=== PATIENT | female | born 1940 | race Hispanic/Latino ===

== ENCOUNTER → 2018-09-16 | Outpatient (CLI) | payer MEDICARE ==
[~2018-09-16] MED LIST: CHOL100040 PO; LEVO500T2 PO
== END | disposition home or self-care (01) ==
LOC: RAH 13:18
PROVIDERS: ATTEND Urology
DX: N13.30 Unspecified hydronephrosis (principal)
CPT/HCPCS: 76770

== ENCOUNTER 2019-02-26 16:15 | Inpatient (IN) | payer MEDICARE ==
[~2019-02-26] VITALS: Ht 172.7 cm; Wt 80.0 kg
[~2019-02-26 16:15] MED LIST changes: -APIX5TAB PO
[2019-02-26 17:27] LABS: BASOPHILS % (AUTO) 1.6 % (0.0-5.0); EOSINOPHILS % (AUTO) 1.2 % (0.0-8.0); HEMATOCRIT 42.6 % (36-48); LYMPHOCYTES % (AUTO) 29.9 % (21.0-51.0); MEAN CORPUSCULAR HEMOGLOBIN 31.1 pg (27.0-33.0); MEAN CORPUSCULAR VOLUME 91.5 fL (79-99); MONOCYTES % (AUTO) 4.8 % (3.0-13.0); NEUTROPHILS % (AUTO) 62.5 % (40.0-77.0); NUCLEATED RED BLOOD CELLS 0.1 % (0.0-0.19); PLATELET COUNT (AUTO) 178 K/uL (130-400); RED BLOOD CELL COUNT(AUTO) 4.66 MIL/uL (4.00-5.50); RED CELL DISTRIBUTION WIDTH 13.4 % (11.0-15.5); WHITE BLOOD COUNT (AUTO) 6.3 K/uL (4.8-10.8)
[2019-02-26 17:29] LABS: CREATININE 0.7 mg/dL (0.5-1.5); POTASSIUM 3.8 mmol/L (3.5-5.1)
[2019-02-26 17:34] LABS: INR 0.95 (0.85-1.15); PARTIAL THROMBOPLASTIN TIME 22.4 SEC (26.3-35.5)
[2019-02-26] MEDS ORDERED: ENOXAPARIN SODIUM 100 MG/1 ML SQ ONE (17:38)
[2019-02-26 17:57] LABS: APPEARANCE,URINE Clear (CLEAR); BILIRUBIN,URINE Negative (NEGATIVE); COLOR,URINE Yellow (YELLOW); GLUCOSE, URINE (UA) Negative (NEGATIVE); KETONES,URINE Negative (NEGATIVE); LEUKOCYTE ESTERASE ,URINE Moderate (NEGATIVE); NITRATE,URINE Negative (NEGATIVE); OCCULT BLOOD,URINE Negative (NEGATIVE); PH,URINE 7.5 (5.0-8.0); PROTEIN,URINE Negative (NEGATIVE); UROBILINOGEN,URINE 0.2 mg/dL (0.2-1.0)
[2019-02-26 18:13] LABS: BACTERIA,URINE Few /HPF (None Seen); RBC,URINE 0-1 /HPF (0-1)
[2019-02-26 18:14] LABS: SQUAMOUS EPITHELIAL CELL,UR Few /HPF (0-2)
[2019-02-26] MEDS ORDERED: LABETALOL 20 MG/4 ML DISP.SYRIN IV ONE (19:40)
[2019-02-26] MEDS ORDERED: ACETAMINOPHEN 325 MG TAB PO PRN (20:00)
[2019-02-26] MEDS ORDERED: ONDANSETRON HCL 4 MG/2 ML VIAL IV PRN (20:00)
[2019-02-26 20:50] VITALS: BP 184/80
[2019-02-26] MEDS ORDERED: CEFTRIAXONE SODIUM 1 GM IVP SCH (21:30)
[2019-02-26] MEDS: FAMOTIDINE 20MG TAB 20 MG TAB PO SCH (21:42)
[2019-02-26] MEDS: HYDRALAZINE HCL 20 MG/ML VIAL IV PRN (21:42)
[2019-02-26] MEDS: ACETAMINOPHEN 325 MG TAB PO PRN (22:19)
[2019-02-26 23:38] VITALS: BP 165/77
[2019-02-27] MEDS: ACETAMINOPHEN 325 MG TAB PO PRN ×4 (03:24→22:53)
[2019-02-27 04:00] VITALS: BP_SYST 149; BP_SYST 153; BP_DIAS 79; BP_DIAS 89
[2019-02-27 04:50] LABS: BASOPHILS % (AUTO) 0.8 % (0.0-5.0); HEMATOCRIT 39.6 % (36-48); LYMPHOCYTES % (AUTO) 29.8 % (21.0-51.0); MEAN CORPUSCULAR HEMOGLOBIN 31.8 pg (27.0-33.0); MEAN CORPUSCULAR HGB CONC 34.5 g/dL (32.0-36.0); MONOCYTES % (AUTO) 8.5 % (3.0-13.0); NEUTROPHILS % (AUTO) 59.9 % (40.0-77.0); PLATELET COUNT (AUTO) 157 K/uL (130-400); RED BLOOD CELL COUNT(AUTO) 4.31 MIL/uL (4.00-5.50); RED CELL DISTRIBUTION WIDTH 13.1 % (11.0-15.5)
[2019-02-27 05:17] LABS: ALBUMIN 3.3 g/dL (3.5-5.0); BILIRUBIN,TOTAL 0.4 mg/dL (0.2-1.0); CREATININE 0.6 mg/dL (0.5-1.5); POTASSIUM 3.5 mmol/L (3.5-5.1); TOTAL PROTEIN, SERUM 6.6 g/dL (6.0-8.3)
[2019-02-27 08:00] VITALS: BP 158/73
--- NOTE | 2019-02-27 08:00 | NUR ---
DENIES PAIN TO LT LOWER EXTREMITY. NO SWELLING OR REDNESS NOTED AT THIS TIME, STATES IT JUST FEELS HEAVY. HAS BEEN INST. ON BEDREST STATUS.
[2019-02-27] MEDS: FAMOTIDINE 20MG TAB 20 MG TAB PO SCH ×2 (08:53→21:42)
[2019-02-27] MEDS: ENOXAPARIN SODIUM 80 MG/0.8 ML SQ SCH ×2 (08:54→21:42)
--- NOTE | 2019-02-27 09:10 | NUR ---
C/O OF MILD MENA. REQUESTED TYLENOL.
[2019-02-27 11:53] VITALS: BP 157/70
[2019-02-27] MEDS ORDERED: IOHEXOL 350 MG/ML 100ML INFUS..BTL IV ONE (11:59)
--- NOTE | 2019-02-27 12:27 | NUR ---
DCP CM met with pt discussed dc plans. Pt is independent prior to admission, lives at home with spouse. Denies any equipments/services. Pt feels safe to go back home, spouse and daughter able to assist with transportation and needs as necessary. DC plan to home once stable. CM to cont to follow up. Addendum: 02/27/19 at 1228 by SURESH JULIAN LVN CM Amended: Links added.
[2019-02-27] MEDS: LEVOFLOXACIN 500 MG/D5W 100 ML 100 ML IV SCH (13:44)
--- NOTE | 2019-02-27 15:35 | NUR ---
RD NOTIFICATION Pt admitted for Left Lower Extremity DVT. Pt with Heart Healthy Diet in place. Upon visit, Pt reports desire for salads and additional fruit. RD to update food preferences to encourage increased nutritional intake. Pt with no other nutrition concerns. Pt LBM 02/25/19. Pt monitored labs: BUN 19, ALT 11, Alb 3.3. RD to continue to monitor. Please notify RD as additional nutrition concerns arise. Thank you. Addendum: 02/27/19 at [address] RD Amended: Links added.
[2019-02-27 17:30] VITALS: BP 160/78
--- NOTE | 2019-02-27 18:04 | NUR ---
URINE SPECIMEN COLLECTED AND SENT TO LAB FOR CULTURE.
[2019-02-27 19:05] VITALS: BP 143/66
[2019-02-27 19:15] VITALS: BP 143/66
[2019-02-28] VITALS (7 sets, daily range): BP systolic 122–163; BP diastolic 53–88
[2019-02-28] MEDS: HYDRALAZINE HCL 20 MG/ML VIAL IV PRN ×2 (04:38→23:38)
[2019-02-28 05:03] LABS: BASOPHILS % (AUTO) 0.8 % (0.0-5.0); EOSINOPHILS % (AUTO) 1.3 % (0.0-8.0); HEMATOCRIT 40.3 % (36-48); LYMPHOCYTES % (AUTO) 36.5 % (21.0-51.0); MEAN CORPUSCULAR HEMOGLOBIN 31.4 pg (27.0-33.0); MEAN CORPUSCULAR HGB CONC 34.3 g/dL (32.0-36.0); MEAN CORPUSCULAR VOLUME 91.4 fL (79-99); MONOCYTES % (AUTO) 8.8 % (3.0-13.0); NEUTROPHILS % (AUTO) 52.6 % (40.0-77.0); PLATELET COUNT (AUTO) 174 K/uL (130-400); RED BLOOD CELL COUNT(AUTO) 4.41 MIL/uL (4.00-5.50); RED CELL DISTRIBUTION WIDTH 13.8 % (11.0-15.5); WHITE BLOOD COUNT (AUTO) 5.4 K/uL (4.8-10.8)
[2019-02-28 05:09] LABS: CREATININE 0.8 mg/dL (0.5-1.5); POTASSIUM 3.3 mmol/L (3.5-5.1)
[2019-02-28] MEDS ORDERED: LIDOCAINE HCL-MPF 1% 2ML VIAL IV PRN (05:45)
[2019-02-28] MEDS ORDERED: POTASSIUM CHLORIDE 10% ELIXIR 20 MEQ/15 ML UDCUP PO PRN (05:45)
[2019-02-28] MEDS ORDERED: POTASSIUM CHLORIDE 20MEQ/100ML 100 ML IV PRN (05:45)
[2019-02-28] MEDS: POTASSIUM CHLORIDE 20 MEQ ERTAB PO PRN ×3 (06:01→12:24)
[2019-02-28] MEDS: Cholecalciferol (Vitamin D3) (Vitamin D3) 1,000 UNIT PO SCH (09:00)
[2019-02-28] MEDS: APIXABAN 5 MG TABLET PO SCH ×2 (10:26→19:20)
[2019-02-28] MEDS: FAMOTIDINE 20MG TAB 20 MG TAB PO SCH ×2 (10:26→19:20)
[2019-02-28] MEDS: LEVOFLOXACIN 500 MG/D5W 100 ML 100 ML IV SCH (12:24)
[2019-03-01] VITALS (8 sets, daily range): BP systolic 120–186; BP diastolic 61–102
[2019-03-01 08:44] LABS: BASOPHILS % (AUTO) 0.6 % (0.0-5.0); EOSINOPHILS % (AUTO) 0.3 % (0.0-8.0); HEMATOCRIT 43.6 % (36-48); LYMPHOCYTES % (AUTO) 24.8 % (21.0-51.0); MEAN CORPUSCULAR HEMOGLOBIN 31.6 pg (27.0-33.0); MEAN CORPUSCULAR VOLUME 92.9 fL (79-99); MONOCYTES % (AUTO) 7.6 % (3.0-13.0); NEUTROPHILS % (AUTO) 66.7 % (40.0-77.0); NUCLEATED RED BLOOD CELLS 0.1 % (0.0-0.19); PLATELET COUNT (AUTO) 196 K/uL (130-400); RED BLOOD CELL COUNT(AUTO) 4.69 MIL/uL (4.00-5.50); RED CELL DISTRIBUTION WIDTH 13.9 % (11.0-15.5); WHITE BLOOD COUNT (AUTO) 7.9 K/uL (4.8-10.8)
[2019-03-01] MEDS: Cholecalciferol (Vitamin D3) (Vitamin D3) 1,000 UNIT PO SCH (09:00)
[2019-03-01 09:30] LABS: CREATININE 0.7 mg/dL (0.5-1.5)
[2019-03-01] MEDS: FAMOTIDINE 20MG TAB 20 MG TAB PO SCH ×2 (10:22→20:36)
[2019-03-01] MEDS: APIXABAN 5 MG TABLET PO SCH ×2 (10:22→20:37)
[2019-03-01 11:22] LABS: POTASSIUM 4.4 mmol/L (3.5-5.1)
[2019-03-01] MEDS: LEVOFLOXACIN 500 MG/D5W 100 ML 100 ML IV SCH (12:55)
[2019-03-01] MEDS: ACETAMINOPHEN 325 MG TAB PO PRN (21:25)
[2019-03-02] VITALS: BP 147/76
[2019-03-02 04:00] VITALS: BP 139/62
[2019-03-02 07:00] VITALS: BP 158/74
[2019-03-02 08:12] LABS: BASOPHILS % (AUTO) 0.9 % (0.0-5.0); EOSINOPHILS % (AUTO) 1.6 % (0.0-8.0); HEMATOCRIT 42.5 % (36-48); LYMPHOCYTES % (AUTO) 36.6 % (21.0-51.0); MEAN CORPUSCULAR HEMOGLOBIN 31.2 pg (27.0-33.0); MEAN CORPUSCULAR HGB CONC 33.9 g/dL (32.0-36.0); MONOCYTES % (AUTO) 6.9 % (3.0-13.0); NUCLEATED RED BLOOD CELLS 0.1 % (0.0-0.19); PLATELET COUNT (AUTO) 178 K/uL (130-400); RED BLOOD CELL COUNT(AUTO) 4.62 MIL/uL (4.00-5.50); RED CELL DISTRIBUTION WIDTH 13.5 % (11.0-15.5); WHITE BLOOD COUNT (AUTO) 5.8 K/uL (4.8-10.8)
[2019-03-02 08:39] LABS: CREATININE 0.8 mg/dL (0.5-1.5); POTASSIUM 3.9 mmol/L (3.5-5.1)
[2019-03-02] MEDS: Cholecalciferol (Vitamin D3) (Vitamin D3) 1,000 UNIT PO SCH (09:00)
[2019-03-02] MEDS: APIXABAN 5 MG TABLET PO SCH (09:28)
[2019-03-02] MEDS: FAMOTIDINE 20MG TAB 20 MG TAB PO SCH (09:28)
[2019-03-02] MEDS ORDERED: APIX5TAB PO ×2 (11:18)
--- NOTE | 2019-03-02 11:22 | NUR ---
CM Note: Pt given Eliquis coupon CM met with pt given Eliquis coupon, explained purpose and what is covered. answered questions. Primary nurse aware. CM to cont to follow up.
[2019-03-02 12:26] VITALS: BP 170/78
[2019-03-02] MEDS: LEVOFLOXACIN 500 MG/D5W 100 ML 100 ML IV SCH (13:26)
== END 2019-03-02 15:45 | disposition home or self-care (01) | DRG 300 ==
LOC: EDH 16:15 → OBSVTOIN 19:50 → EDHIP 19:50 → 3CH 20:42
PROVIDERS: ADMIT Internal Medicine; ATTEND Internal Medicine
DX: I82.412 Acute embolism and thrombosis of left femoral vein (principal); N39.0 Urinary tract infection, site not specified; E78.5 Hyperlipidemia, unspecified; I10 Essential (primary) hypertension; M32.9 Systemic lupus erythematosus, unspecified; Z79.01 Long term (current) use of anticoagulants; Z90.710 Acquired absence of both cervix and uterus; Z90.49 Acquired absence of other specified parts of digestive tract; Z88.0 Allergy status to penicillin; Z88.2 Allergy status to sulfonamides; Z88.8 Allergy status to other drugs, medicaments and biological substances
CPT/HCPCS: 36415; 71275; 80048; 80053; 81001; 85025; 85610; 85730; 87088; 93005; 93970; G0378; J0360; J0696; J1650; J1956; Q9967

== ENCOUNTER → 2019-02-26 | Outpatient (CLI) | payer MEDICARE ==
[~2019-02-26] MED LIST changes: +APIX5TAB PO
== END | disposition home or self-care (01) ==
LOC: RAH 14:54
PROVIDERS: ATTEND Internal Medicine
DX: R60.0 Localized edema (principal)
CPT/HCPCS: 93970

== ENCOUNTER → 2023-12-30 | Outpatient (CLI) | payer MEDICARE ==
[~2023-12-30] MED LIST changes: +APIX5TAB PO; -LEVO500T2 PO
== END | disposition home or self-care (01) ==
LOC: RAH 15:03
PROVIDERS: ATTEND Physical Medicine & Rehabilitation
DX: M47.812 Spondylosis without myelopathy or radiculopathy, cervical region (principal); M48.02 Spinal stenosis, cervical region; M50.322 Other cervical disc degeneration at C5-C6 level; R26.89 Other abnormalities of gait and mobility; M25.562 Pain in left knee
CPT/HCPCS: 72141

== ENCOUNTER → 2024-02-28 | Outpatient (CLI) | payer MEDICARE | END | disposition home or self-care (01) | LOC: RAH 13:16 | PROVIDERS: ATTEND Physical Medicine & Rehabilitation | DX: G91.2 (Idiopathic) normal pressure hydrocephalus (principal); G93.89 Other specified disorders of brain; Z86.73 Personal history of transient ischemic attack (TIA), and cerebral infarction without residual deficits | CPT/HCPCS: 70551 ==

== ENCOUNTER 2024-12-10 13:52 | Emergency (ER) | payer MEDICARE ==
[~2024-12-10] VITALS: Ht 167.6 cm; Wt 77.1 kg
[2024-12-10] MEDS: ORPHENADRINE 60MG/2ML IM ONE (14:54)
--- NOTE | 2024-12-10 15:01 | ERN ---
General Chief Complaint: Back Pain-No Injury Stated Complaint: BACK PAIN DUE TO FALL Time Seen by MD: 13:55 Source: patient History of Present Illness Initial Comments IN HIS IS A AN 84-YEAR-OLD FEMALE COMING IN COMPLAINING OF TAILBONE PAIN. PER PATIENT SHE FELL DOWN COUPLE OF DAYS AGO AND HAS BEEN HAVING THIS TAILBONE PAIN SINCE THEN. SHE STATES THAT INITIALLY IT WAS 8/10 IN INTENSITY PER RECENTLY HAS GOTTEN A LITTLE BETTER. Allergies: Coded Allergies: pantoprazole sodium (Unverified Allergy, Severe, DIARRHEA, 02/05/12) Sulfa (Sulfonamide Antibiotics) (Unverified Allergy, Unknown, HEADACHES, 02/25/19) penicillin V (Unverified Allergy, Unknown, HIVES, SWELLING, 02/25/19) Home Meds Active Scripts Apixaban (Eliquis) 5 Mg Tablet, 5 MG PO BID for 30 Days, #90 TAB Prov:MARELY GARCIA MD 03/02/19 Reported Medications Cholecalciferol (Vitamin D3) (Vitamin D3) 1,000 Unit Capsule, 1000 UNIT PO AM, CAP 08/13/18 Past Medical History Past Medical History: Hypertension Past Surgical History: Hysterectomy Surgical History Other: ANKLE ROS Dictation CONSTITUTIONAL: NO CHILLS, NO FEVER, NO WEAKNESS, NO DIAPHORESIS, NO MALAISE. HEAD/FACE: NO SIGNS OF TRAUMA. EENT: NO EYE PAIN, NO BLURRED VISION, NO TEARING, NO DOUBLE VISION, NO EAR PAIN, NO EAR DISCHARGE, NO NOSE PAIN, NO NASAL CONGESTION, NO THROAT PAIN, NO THROAT SWELLING, NO MOUTH PAIN. RESPIRATORY: NO COUGH, NO ORTHOPNEA, NO SOB, NO STRIDOR, NO WHEEZING. CARDIOVASCULAR: NO CHEST PAIN, NO EDEMA, NO PALPITATIONS, NO SYNCOPE. GASTROINTESTINAL/ABDOMINAL: NO ABDOMINAL PAIN, NO CONSTIPATION, NO DIARRHEA, NO NAUSEA, NO VOMITING. GENITOURINARY: NO ABNORMAL DISCHARGE, NO DYSURIA, NO FREQUENT URINATION, NO HEMATURIA. NO COMPLAINTS OF PAIN IN THE GENITALS. MUSCULOSKELETAL: BACK PAIN, NO GOUT, NO JOINT PAIN, NO JOINT SWELLING, NO MUSCLE PAIN, NO MUSCLE STIFFNESS, NO NECK PAIN. INTEGUMENTARY: NO CHANGE IN COLOR, NO CHANGE IN HAIR/NAILS, NO DRYNESS, NO LESION, NO LUMPS, NO RASH. NEUROLOGICAL/PSYCH: NO ANXIETY, NOT DEPRESSED, NO EMOTIONAL PROBLEM, NO HEADACHE, NO NUMBNESS, NO PRE-EXISTING DEFICIT, NO HISTORY OF SEIZURES, NO TREMORS, NO WEAKNESS. HEMATOLOGIC/LYMPHATIC: NOT ANEMIC, NO HISTORY OF BLOOD CLOTS, NO APPARENT BLEEDING, NO BRUISING, GLANDS NOT SWOLLEN. ALL SYSTEMS NEGATIVE, EXCEPT NOTED. Physical Exam Physical Exam Dictation VITAL SIGNS: REVIEWED. GENERAL APPEARANCE: ALERT, ORIENTED X3, NO ACUTE DISTRESS, OBESE. HEAD AND FACE: NON-TRAUMATIC. EYES: PERRL, PINK CONJUNCTIVAS, EYELID NO TRAUMA, ANTERIOR CHAMBER CLEAR. EARS: PINNAS INTACT AND NO SIGNS OF TRAUMA OR ERYTHEMA. EAR CANALS CLEAR AND NO DISCHARGE. TMS NO ERYTHEMA. NOSE: NO DISCHARGE, NO BLEEDING. OROPHARYNX: MOUTH NORMAL, TEETH NO CARIES, TONGUE PINK. PHARYNX CLEAR, NO ERYTHEMA. TONSILS NO EXUDATES, NO ABSCESSES NOTED. MUCOUS MEMBRANE MOIST. NECK: SUPPLE, NON-TENDER, NO THYROMEGALY, NO MASSES, NO JVD, NO BRUITS. BREAST: DEFERRED. CHEST: NO TENDERNESS, NO CREPITUS, NO PARADOXICAL MOVEMENT, NO RETRACTIONS. LUNGS: CLEAR, WELL-VENTILATED, SYMMETRIC, NO RALES, NO WHEEZING, NO RHONCHI, NO STRIDOR, GOOD BREATH SOUNDS BILATERALLY. HEART: REGULAR RATE, REGULAR RHYTHM, NO MURMUR, NO GALLOPS. VASCULAR: NO PERIPHERAL EDEMA. ABDOMEN: SOFT, POSITIVE BOWEL SOUNDS, NONDISTENDED, NO GUARDING, NONTENDER, NO REBOUND, NO MASSES NO HEPATOMEGALY, NO SPLENOMEGALY, NO GAYTAN'S SIGN, NO HERNIAS. RECTAL: DEFERRED. GENITAL: DEFERRED. NEUROLOGICAL: NORMAL SPEECH, GROSS MOTOR FUNCTION INTACT, GROSS SENSORY FUNCTION INTACT. MUSCULOSKELETAL: NECK NONTENDER, FULL RANGE OF MOTION, BACK NONTENDER, COCCYX PAIN ON PALPATION, FULL RANGE OF MOTION. EXTREMITIES: NONTENDER, FULL RANGE OF MOTION. SKIN: COLOR PINK, DRY, NO TURGOR, NO RASH, NO LACERATIONS, NO ABRASIONS, NO CONTUSIONS. LYMPHATICS: DEFERRED. Results Laboratory and Microbiology Labs Reviewed?: Yes EKG/XRAY/US/CT/MRI X-RAY Comment [address] [place] [id number] IMAGING REPORT Signed PATIENT: KELLEN CHOW MR#: [id number] : 1940 SEX: F AGE: 84 LOCATION: [facility] ORDER [id number] STATUS: REG ER REPORT#: [id number] SERVICE [id number] REASON: FALL ORDERING PHYSICIAN: RONALD CLINE MD PROCEDURE: SAC DOMINGA 2V - SACRUM/COCCYX 2+VWS EXAM: CR Sacrum and Coccyx, 3 View. CLINICAL HISTORY: FALL COMPARISON: None provided. FINDINGS: BONES: Bones are osteopenic, limiting evaluation for nondisplaced fractures. No acute fracture or aggressive appearing osseous lesion. Bony alignment is anatomic. SOFT TISSUES: The soft tissues are unremarkable. IMPRESSION: No displaced fracture appreciated. If clinical concern persist recommend CT imaging for further evaluation. /[place] DICTATED BY: NNEKA TIMMONS Jr., MD DATE: 12/10/241643 ELECTRONICALLY SIGNED BY: NNEKA TIMMONS Jr., MD DATE: 12/10/241643 MDM MDM: DIFFERENTIAL DIAGNOSIS: FALL, RATIONALE: TESTS CONSIDERED AND ORDERED SECONDARY TO SHARED DECISION MAKING INCLUDE: PREVIOUS OUTSIDE RECORDS REVIEWED: OLD ER VISITS. RISK OF COMPLICATION AND/OR MORBIDITY OR MORTALITY OF PATIENT MANAGEMENT: NONE IS A AN 84-YEAR-OLD FEMALE COMING IN COMPLAINING OF THE SHE HAD A FALL. PER PATIENT SHE FELL DOWN A COUPLE OF DAYS AGO X-RAY DID NOT DISCLOSE ACUTE FIND INGS. MANY CHRONIC CHANGES TO THE BONES MADE IMAGING NOT CLEAR. BECAUSE PATIENT WAS FEELING BETTER PATIENT WILL BE DISCHARGED IN STABLE CONDITION I DID ADVISE HER CONSERVATIVE MANAGEMENT IF THE PAIN PERSIST I ALSO ADVISED HER TO FOLLOW UP WITH PCP AND POSSIBLY REPEAT X-RAY OR A CT. PATIENT IS A AN AGREEMENT AND WILL BE DISCHARGED IN STABLE CONDITION ED Course Orders Procedure Category Date Status Time Sacrum/Coccyx 2+Vws RAD 12/10/24 Resulted 13:59 Orphenadrine Citrate PHA 12/10/24 Complete (Norflex) 14:00 Acetaminophen 500mg PHA 12/10/24 Complete Tab (Tylenol 500mg T 14:00 Current Medications Medications (Trade) Dose Ordered Sig/Ozzy Route PRN Reason Start Time Stop Time Status Last Admin Dose Admin Acetaminophen (TYLenol 500MG TAB) 500 mg ONCE ONCE PO 12/10/24 14:00 12/10/24 14:07 DC 12/10/24 14:54 Orphenadrine Citrate (Norflex) 60 mg ONCE ONCE IM 12/10/24 14:00 12/10/24 14:06 DC 12/10/24 14:54 Vital Signs Date Time Temp Pulse Resp B/P (MAP) Pulse Ox O2 Delivery O2 Flow Rate FiO2 12/10/24 14:48 98.8 68 18 164/62 96 Room Air* 0 21 12/10/24 13:56 98.8 72 16 179/63 95 Room Air 0 DX & DISP Disposition: Discharge Departure Impression: Primary Impression: Coccyx contusion Condition: Stable Scripts Acetaminophen (Tylenol) 500 Mg Tab 1 TAB PO Q6HPRN PRN for pain or fever for 3 Days, #12 TAB 0 Refills Prov: RONALD CLINE MD 12/10/24 Methocarbamol (Robaxin) 750 Mg Tab 1 TAB PO BID for 3 Days, #6 TAB 0 Refills Prov: RONALD CLINE MD 12/10/24 Additional Instructions: FOLLOW-UP WITH PRIMARY CARE PROVIDER IN 1 TO 2 DAYS. TAKE MEDICATIONS DIRECTED HERE IN THE EMERGENCY ROOM. OKAY TO CONTINUE HOME MEDICATIONS UNLESS OTHERWISE DISCUSSED DURING YOUR VISIT IN THE EMERGENCY ROOM TODAY. RETURN TO YOUR NEAREST EMERGENCY ROOM IF SYMPTOMS WORSEN OR IF THERE IS NO IMPROVEMENT. CALL 911 IF YOU NEED IMMEDIATE ASSISTANCE. TAKE TYLENOL [id number] NEEDED AND IF NO CONTRAINDICATIONS ARE PRESENT. INCREASE ORAL HYDRATION. A WOUND CULTURE OR URINE CULTURE WAS ORDERED HERE IN THE EMERGENCY ROOM DEPARTMENT PLEASE FOLLOW-UP WITH PRIMARY CARE PROVIDER AND ADVISE THEM TO GET REPORTS FROM OUR FACILITY. IF YOU HAD ANY ANDREINA WRAP/SPLINTS THAT WERE APPLIED HERE, PLEASE DO NOT REMOVE THEM UNTIL YOU SEE YOUR PRIMARY CARE OR SPECIALTY. REFERRALS: Referrals: ASHLEY CRESPO MD (PCP) Time of Disposition: 15:52 RONALD CLINE MD Dec 10, 2024 15:01
--- NOTE | 2024-12-10 15:45 | HMCIMG ---
EXAM: CR Sacrum and Coccyx, 3 View. CLINICAL HISTORY: FALL COMPARISON: None provided. FINDINGS: BONES: Bones are osteopenic, limiting evaluation for nondisplaced fractures. No acute fracture or aggressive appearing osseous lesion. Bony alignment is anatomic. SOFT TISSUES: The soft tissues are unremarkable. IMPRESSION: No displaced fracture appreciated. If clinical concern persist recommend CT imaging for further evaluation. /[place]
[2024-12-10] MEDS ORDERED: METH-662 PO (15:53)
[2024-12-10] MEDS ORDERED: ACET-66 PO (15:53)
[2024-12-10 16:06] VITALS: BP 166/68; PULSE 69; RESP 17; TEMP 98.1; O2SAT 96
== END 2024-12-10 16:15 | disposition home or self-care (01) ==
LOC: EDH 13:52
DX: S30.0XXA Contusion of lower back and pelvis, initial encounter (principal); I10 Essential (primary) hypertension; Z79.01 Long term (current) use of anticoagulants; Z88.0 Allergy status to penicillin; Z88.2 Allergy status to sulfonamides; Z90.710 Acquired absence of both cervix and uterus; X58.XXXA Exposure to other specified factors, initial encounter; Y93.89 Activity, other specified; Y92.89 Other specified places as the place of occurrence of the external cause; Y99.8 Other external cause status
CPT/HCPCS: 72220; 96372; 99283; J2360